=== PATIENT | male | born 1995 | race Caucasian/White ===

== ENCOUNTER 2017-08-06 03:19 | Emergency (ER) | payer OTHER ==
[~2017-08-06] VITALS: Ht 167.6 cm; Wt 60.0 kg
[2017-08-06] MEDS ORDERED: LORazepam 2 MG/ML VIAL IVP ONE (04:45)
[2017-08-06 04:56] LABS: AMPHET/METH SCREEN,URINE POSITIVE (NEGATIVE); BARBITURATE SCREEN, URINE NEGATIVE (NEGATIVE); BENZODIAZEPINES SCREEN,URINE NEGATIVE (NEGATIVE); CANNABINOID SCREEN,URINE NEGATIVE (NEGATIVE); COCAINE SCREEN,URINE POSITIVE (NEGATIVE); METHADONE SCREEN, URINE NEGATIVE (NEGATIVE); OPIATE SCREEN,URINE NEGATIVE (NEGATIVE); PHENCYCLIDINE SCREEN,URINE NEGATIVE (NEGATIVE)
[2017-08-06 05:45] VITALS: BP 125/85
== END 2017-08-06 06:29 | disposition home or self-care (01) ==
LOC: EMS 03:20
DX: F15.10 Other stimulant abuse, uncomplicated (principal); F14.10 Cocaine abuse, uncomplicated; R00.2 Palpitations; R20.2 Paresthesia of skin; F17.210 Nicotine dependence, cigarettes, uncomplicated; J45.909 Unspecified asthma, uncomplicated; F12.90 Cannabis use, unspecified, uncomplicated
CPT/HCPCS: 71045; 80307; 93005; 96374; 99285; 99406; J2060

== ENCOUNTER 2018-05-16 10:35 | Inpatient (IN) | payer MEDICAID, OTHER ==
[~2018-05-16] VITALS: Ht 167.6 cm; Wt 61.7 kg
[2018-05-16 11:18] LABS: BASOPHILS % (AUTO) 0.5 % (0.0-2.0); EOSINOPHILS % (AUTO) 0.9 % (1.0-6.0); HEMOGLOBIN 16.4 g/dL (13.5-17.5); LYMPHOCYTES # (AUTO) 1.8 K/uL (1.0-4.8); LYMPHOCYTES % (AUTO) 17.2 % (22.0-44.0); MEAN CORPUSCULAR HEMOGLOBIN 29.4 pg (26.0-34.0); MEAN CORPUSCULAR HGB CONC 32.9 G/dL (31.0-37.0); MEAN CORPUSCULAR VOLUME 89 fL (80-100); MONOCYTES # (AUTO) 0.7 K/uL (0.1-1.0); MONOCYTES % (AUTO) 6.5 % (2.0-9.0); NEUTROPHILS # (AUTO) 7.7 K/uL (1.8-7.7); NEUTROPHILS % (AUTO) 74.9 % (40.0-70.0); PLATELET COUNT (AUTO) 262 K/uL (150-450); RED BLOOD CELL COUNT(AUTO) 5.59 MIL/uL (4.50-5.90); RED CELL DISTRIBUTION WIDTH 13.8 % (11.5-14.5)
[2018-05-16 11:26] LABS: ANION GAP 3 mmol/L (8-16); CALCIUM, TOTAL 9.7 mg/dL (8.8-10.5); CARBON DIOXIDE 32 mmol/L (22-29); CHLORIDE 104 mmol/L (98-107); GLOMERULAR FILTR. RATE CALC > 60 mL/min (>60); GLUCOSE,RANDOM 86 mg/dL (70-110); POTASSIUM 5.1 mmol/L (3.5-5.1); SODIUM SERUM 139 mmol/L (136-145); UREA NITROGEN, BLOOD 14 mg/dL (7-18)
[2018-05-16 11:32] LABS: ALANINE AMINOTRANSFERASE 29 U/L (12-78); ALBUMIN 4.4 g/dL (3.4-5.0); ALKALINE PHOSPHATASE 98 U/L (46-116); ASPARTATE AMINOTRANSFERASE 13 U/L (15-37); BILIRUBIN,TOTAL 0.5 mg/dL (0.1-1.0); TOTAL PROTEIN, SERUM 8.3 g/dL (6.4-8.2)
[2018-05-16 12:07] LABS: AMPHET/METH SCREEN,URINE POSITIVE (NEGATIVE); BARBITURATE SCREEN, URINE NEGATIVE (NEGATIVE); BENZODIAZEPINES SCREEN,URINE NEGATIVE (NEGATIVE); CANNABINOID SCREEN,URINE NEGATIVE (NEGATIVE); COCAINE SCREEN,URINE NEGATIVE (NEGATIVE); METHADONE SCREEN, URINE NEGATIVE (NEGATIVE); OPIATE SCREEN,URINE NEGATIVE (NEGATIVE)
[2018-05-16 12:08] LABS: PHENCYCLIDINE SCREEN,URINE NEGATIVE (NEGATIVE)
[2018-05-16] MEDS ORDERED: BACITRACIN 0.9 GM PACKET OINTMENT TP ONE (13:15)
[2018-05-16] MEDS ORDERED: ZOLPIDEM TARTRATE 10 MG TABLET PO PRN (14:30)
[2018-05-16 18:37] VITALS: BP 131/84
[2018-05-17 06:57] VITALS: BP 120/78
[2018-05-17 07:57] LABS: CHOL/HDL RATIO 3.5 (4.2-7.3)
[2018-05-17 08:11] VITALS: BP 122/76
[2018-05-17] MEDS: BACITRACIN 28.4 GM OINTMENT TP SCH ×2 (08:37→16:48)
[2018-05-17] MEDS: NICOTINE 21 MG/24 HOUR PATCH TD SCH (08:41)
[2018-05-17] MEDS: HALOPERIDOL 5 MG TABLET PO PRN (08:42)
[2018-05-17] MEDS: LORazepam 2 MG TABLET PO PRN (08:42)
[2018-05-17 16:14] VITALS: BP 135/74
[2018-05-18 06:37] VITALS: BP 124/82
[2018-05-18 08:11] VITALS: BP 126/78
[2018-05-18] MEDS: LORazepam 2 MG TABLET PO PRN ×2 (08:34→17:07)
[2018-05-18] MEDS: BACITRACIN 28.4 GM OINTMENT TP SCH ×2 (08:34→17:08)
[2018-05-18] MEDS: NICOTINE 21 MG/24 HOUR PATCH TD SCH (08:34)
[2018-05-18] MEDS: HALOPERIDOL 5 MG TABLET PO PRN (08:34)
[2018-05-18] MEDS: RisperiDONE 1 MG TABLET PO SCH ×2 (08:34→17:07)
[2018-05-18] MEDS: DIVALPROEX SODIUM 500 MG DR TABLET PO SCH ×2 (08:34→17:07)
[2018-05-18 16:00] VITALS: BP 121/82
[2018-05-19 05:19] VITALS: BP 122/80
[2018-05-19 08:19] VITALS: BP 128/78
[2018-05-19] MEDS: RisperiDONE 1 MG TABLET PO SCH ×2 (08:48→16:58)
[2018-05-19] MEDS: DIVALPROEX SODIUM 500 MG DR TABLET PO SCH ×2 (08:48→16:58)
[2018-05-19] MEDS: NICOTINE 21 MG/24 HOUR PATCH TD SCH (08:49)
[2018-05-19] MEDS: BACITRACIN 28.4 GM OINTMENT TP SCH ×2 (08:49→16:57)
[2018-05-19 16:10] VITALS: BP 110/77
[2018-05-19] MEDS: HALOPERIDOL 5 MG TABLET PO PRN (16:58)
[2018-05-19] MEDS: LORazepam 2 MG TABLET PO PRN (16:58)
[2018-05-20 06:27] VITALS: BP 135/77
[2018-05-20 08:12] VITALS: BP 130/74
[2018-05-20] MEDS: BACITRACIN 28.4 GM OINTMENT TP SCH ×2 (08:52→16:49)
[2018-05-20] MEDS: RisperiDONE 1 MG TABLET PO SCH ×2 (08:52→16:49)
[2018-05-20] MEDS: DIVALPROEX SODIUM 500 MG DR TABLET PO SCH ×2 (08:52→16:49)
[2018-05-20] MEDS: NICOTINE 21 MG/24 HOUR PATCH TD SCH (08:53)
[2018-05-20 17:01] VITALS: BP 120/73
[2018-05-21] MEDS: LORazepam 2 MG TABLET PO PRN (06:57)
[2018-05-21 06:58] VITALS: BP 111/88
[2018-05-21 08:10] VITALS: BP 138/92
[2018-05-21] MEDS: RisperiDONE 1 MG TABLET PO SCH (08:57)
[2018-05-21] MEDS: DIVALPROEX SODIUM 500 MG DR TABLET PO SCH (08:57)
[2018-05-21] MEDS: NICOTINE 21 MG/24 HOUR PATCH TD SCH (08:57)
[2018-05-21] MEDS: BACITRACIN 28.4 GM OINTMENT TP SCH (08:59)
[2018-05-21] MEDS ORDERED: RISP1 PO (10:44)
== END 2018-05-21 13:55 | disposition home or self-care (01) | DRG 750 ==
LOC: EMS 10:35 → B3A 16:00
PROVIDERS: ADMIT Psychiatry & Neurology Psychiatry; ATTEND Psychiatry & Neurology Psychiatry
DX: F25.9 Schizoaffective disorder, unspecified (principal); F14.90 Cocaine use, unspecified, uncomplicated; F17.210 Nicotine dependence, cigarettes, uncomplicated; J45.909 Unspecified asthma, uncomplicated; F15.90 Other stimulant use, unspecified, uncomplicated; Z79.899 Other long term (current) drug therapy; Z23 Encounter for immunization
CPT/HCPCS: 90686; G0480

== ENCOUNTER 2018-05-23 18:57 | Inpatient (IN) | payer MEDICAID, OTHER ==
[~2018-05-23] VITALS: Ht 170.2 cm; Wt 60.1 kg
[~2018-05-23 18:57] MED LIST: RISP1 PO
[2018-05-23] MEDS ORDERED: [UNRECOGNIZED DRUG - REMARK] PO (20:25)
[2018-05-23] MEDS ORDERED: LORA1TAB3 PO (20:25)
[2018-05-23 20:29] LABS: BASOPHILS % (AUTO) 0.8 % (0.0-2.0); HEMATOCRIT 51.2 % (41-53); HEMOGLOBIN 17.4 g/dL (13.5-17.5); LYMPHOCYTES # (AUTO) 1.9 K/uL (1.0-4.8); LYMPHOCYTES % (AUTO) 20.3 % (22.0-44.0); MEAN CORPUSCULAR HEMOGLOBIN 29.4 pg (26.0-34.0); MEAN CORPUSCULAR VOLUME 87 fL (80-100); MONOCYTES # (AUTO) 0.9 K/uL (0.1-1.0); MONOCYTES % (AUTO) 9.9 % (2.0-9.0); NEUTROPHILS # (AUTO) 6.5 K/uL (1.8-7.7); PLATELET COUNT (AUTO) 329 K/uL (150-450); RED BLOOD CELL COUNT(AUTO) 5.92 MIL/uL (4.50-5.90)
[2018-05-23 20:29] LABS: AMPHET/METH SCREEN,URINE POSITIVE (NEGATIVE); BARBITURATE SCREEN, URINE NEGATIVE (NEGATIVE); BENZODIAZEPINES SCREEN,URINE NEGATIVE (NEGATIVE); CANNABINOID SCREEN,URINE NEGATIVE (NEGATIVE); COCAINE SCREEN,URINE NEGATIVE (NEGATIVE); METHADONE SCREEN, URINE NEGATIVE (NEGATIVE); OPIATE SCREEN,URINE NEGATIVE (NEGATIVE)
[2018-05-23 20:32] LABS: PHENCYCLIDINE SCREEN,URINE NEGATIVE (NEGATIVE)
[2018-05-23 20:55] LABS: ALANINE AMINOTRANSFERASE 29 U/L (12-78); ALBUMIN 4.5 g/dL (3.4-5.0); ALKALINE PHOSPHATASE 96 U/L (46-116); ANION GAP 6 mmol/L (8-16); ASPARTATE AMINOTRANSFERASE 9 U/L (15-37); BILIRUBIN,TOTAL 0.4 mg/dL (0.1-1.0); CALCIUM, TOTAL 9.6 mg/dL (8.8-10.5); CARBON DIOXIDE 32 mmol/L (22-29); CHLORIDE 101 mmol/L (98-107); CREATININE 1.15 mg/dL (0.60-1.30); GLOMERULAR FILTR. RATE CALC > 60 mL/min (>60); GLUCOSE,RANDOM 92 mg/dL (70-110); POTASSIUM 4.4 mmol/L (3.5-5.1); SODIUM SERUM 139 mmol/L (136-145); TOTAL PROTEIN, SERUM 8.7 g/dL (6.4-8.2)
[2018-05-23] MEDS ORDERED: LORazepam 2 MG TABLET PO ONE (21:00)
[2018-05-23 21:17] LABS: UREA NITROGEN, BLOOD 21 mg/dL (7-18)
[2018-05-23 21:35] VITALS: BP 142/92
[2018-05-23] MEDS: ZOLPIDEM TARTRATE 10 MG TABLET PO PRN (22:19)
[2018-05-23] MEDS ORDERED: -PHARMACY VACCINE NOTE- MISC ONE (22:30)
[2018-05-23] MEDS ORDERED: PNEUMOCOCCAL VACCINE POLYVALENT 0.5 ML VIAL [PPSV23] IM ONE (22:30)
[2018-05-24 08:17] VITALS: BP 124/75
[2018-05-24 16:54] VITALS: BP 112/72
[2018-05-24] MEDS: HALOPERIDOL 5 MG TABLET PO PRN (19:30)
[2018-05-24] MEDS: LORazepam 2 MG TABLET PO PRN (19:31)
[2018-05-24] MEDS ORDERED: IBUPROFEN 600 MG TABLET PO PRN (20:15)
[2018-05-24] MEDS ORDERED: ACETAMINOPHEN 325 MG TABLET PO PRN (20:15)
[2018-05-24] MEDS: ZOLPIDEM TARTRATE 10 MG TABLET PO PRN (20:37)
[2018-05-25 06:46] VITALS: BP 118/73
[2018-05-25 08:08] VITALS: BP 116/70
[2018-05-25] MEDS: LORazepam 2 MG TABLET PO PRN ×2 (08:10→16:59)
[2018-05-25] MEDS: RisperiDONE 2 MG TABLET PO SCH ×2 (08:10→16:59)
[2018-05-25] MEDS: HALOPERIDOL 5 MG TABLET PO PRN (08:10)
[2018-05-25] MEDS: DIVALPROEX SODIUM 500 MG DR TABLET PO SCH ×2 (08:10→16:59)
[2018-05-25 16:22] VITALS: BP 120/68
[2018-05-26 06:50] VITALS: BP 110/62
[2018-05-26 08:14] VITALS: BP 112/66
[2018-05-26] MEDS: DIVALPROEX SODIUM 500 MG DR TABLET PO SCH ×2 (08:54→17:18)
[2018-05-26] MEDS: RisperiDONE 2 MG TABLET PO SCH ×2 (08:54→17:18)
[2018-05-26] MEDS: LORazepam 2 MG TABLET PO PRN ×2 (12:19→17:18)
[2018-05-26 16:22] VITALS: BP 128/84
[2018-05-26] MEDS: HALOPERIDOL 5 MG TABLET PO PRN (17:18)
[2018-05-26] MEDS: ZOLPIDEM TARTRATE 10 MG TABLET PO PRN (21:31)
[2018-05-27 03:19] VITALS: BP 119/72
[2018-05-27 08:12] VITALS: BP 116/68
[2018-05-27] MEDS: RisperiDONE 2 MG TABLET PO SCH (09:30)
[2018-05-27] MEDS: LORazepam 2 MG TABLET PO PRN (09:30)
[2018-05-27] MEDS: DIVALPROEX SODIUM 500 MG DR TABLET PO SCH (09:30)
[2018-05-27] MEDS ORDERED: DIVA250T4 PO (13:26)
[2018-05-27] MEDS ORDERED: RISP2TAB76 PO (13:27)
== END 2018-05-27 15:05 | disposition home or self-care (01) | DRG 750 ==
LOC: EMS 19:00 → B3A 20:30
PROVIDERS: ADMIT Psychiatry & Neurology Psychiatry; ATTEND Psychiatry & Neurology Psychiatry
DX: F20.0 Paranoid schizophrenia (principal); R45.851 Suicidal ideations; F15.10 Other stimulant abuse, uncomplicated; J45.909 Unspecified asthma, uncomplicated; F32.9 Major depressive disorder, single episode, unspecified; F17.210 Nicotine dependence, cigarettes, uncomplicated; Z28.21 Immunization not carried out because of patient refusal
CPT/HCPCS: 87081; G0480